=== PATIENT | male | born 1955 | race Caucasian/White ===

== ENCOUNTER → 2017-09-15 | Outpatient (CLI) | payer OTHER ==
[~2017-09-15] MED LIST: FENTANYL1 EAC1 TOP; HYDROCODON-ACE1 EA12 PO; LIDOCAINE20 MG/1 ML PO; ZESTRIL10 MG PO
--- NOTE | 2017-09-15 16:45 | Diagnostic Imaging Report ---
PROCEDURE: Frontal and lateral views of the chest. COMPARISON: 06/09/15 INDICATIONS: RIGHT SIDE MID RIB PAIN. DENIES INJURY FINDINGS: Lines/tubes: None. Lungs: The lungs are well inflated and clear. There is no evidence of pneumonia or pulmonary edema. Pleura: There is no pleural effusion or pneumothorax. Heart and mediastinum: The heart and the mediastinum are normal. Bones: No acute bony abnormality. Degenerative changes of the thoracic spine. IMPRESSION: 1. No acute cardiopulmonary disease. Dictated by: Chinedu Vargas M.D. on 09/15/2017 at 16:49 Electronically approved by: Chinedu Vargas M.D. on 09/15/2017 at 16:49
--- NOTE | 2017-09-15 16:55 | Diagnostic Imaging Report ---
PROCEDURE:X-RAY UNILATERAL RIBS WITH CHEST X-RAY COMPARISON:06/09/2015 INDICATIONS:RIGHT SIDE MID RIB PAIN. DENIES INJURY FINDINGS: See conclusion. CONCLUSION: No evidence of acute displaced right-sided rib fracture. Dictated by: Chinedu Vargas M.D. on 09/15/2017 at 16:59 Electronically approved by: Chinedu Vargas M.D. on 09/15/2017 at 16:59
== END ==
LOC: RAD 15:40
PROVIDERS: ATTEND Family Medicine
DX: R07.89 Other chest pain (principal)
CPT/HCPCS: 71046; 71101

== ENCOUNTER → 2017-12-12 | Outpatient (CLI) | payer OTHER ==
--- NOTE | 2017-12-12 14:58 | Diagnostic Imaging Report ---
EXAMINATION: CT scan of the chest and abdomen without contrast. TECHNIQUE: Helical CT images of the chest and abdomen were performed from the lung apices to the level of the iliac crest. No intravenous contrast was administered Coronal and sagittal reformatted images were obtained.Dose modulation, iterative reconstruction, and/or weight based adjustment of the mA/kV was utilized to reduce the radiation dose to as low as reasonably achievable. COMPARISON: None. CLINICAL HISTORY:Right anterior rib pain, history of cancer DISCUSSION: ABSENCE OF INTRAVENOUS CONTRAST DECREASES SENSITIVITY FOR DETECTION OF FOCAL LESIONS AND VASCULAR PATHOLOGY. LINES/TUBES: None. LUNGS AND AIRWAYS: 5 mm left lower lobe nodule image 106. 2 mm left upper lobe nodule image 57. PLEURA: No pneumothorax or pleural effusions. HEART AND MEDIASTINUM: The thyroid gland is normal. The heart and pericardium are within normal limits. Coronary artery calcifications. LYMPH NODES: There is no mediastinal, hilar or axillary lymphadenopathy. HEPATOBILIARY: Liver is normal in appearance. Cholelithiasis. SPLEEN: No splenomegaly. PANCREAS: No focal masses or ductal dilatation. ADRENALS: No adrenal nodules. KIDNEYS/URETERS: No hydronephrosis, stones, or solid mass lesions. PERITONEUM/RETROPERITONEUM: No free air or fluid. LYMPH NODES: No intra-abdominal, retroperitoneal, pelvic or inguinal lymphadenopathy. VESSELS: The celiac trunk,superior and inferior mesenteric and bilateral renal arteries are patent The portal, superior mesenteric and splenic veins are patent. GI TRACT: No distention or wall thickening. BONES AND SOFT TISSUE: Expansile destructive lesion of the right seventh rib with soft tissue component IMPRESSION: Expansile destructive lesion of the right seventh rib with soft tissue component. 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 Biopsy recommended. 5 mm left lower lobe nodule. Signed by: Dr. Kenney Robison M.D. on 12/12/2017 2:54 PM
== END ==
LOC: CT 13:44
PROVIDERS: ATTEND Family Medicine
DX: R07.89 Other chest pain (principal)
CPT/HCPCS: 71250; 74150